=== PATIENT | female | born 1960 | race Caucasian/White ===

== ENCOUNTER 2017-01-01 09:22 | Emergency (ER) | payer OTHER ==
[2017-01-01 09:34] LABS: MEAN CORPUSCULAR HGB CONC 34.5 gm/dl (32.0-36.0)
[2017-01-01 09:45] LABS: GLOM FILT RATE 52 mL/min (>60); POTASSIUM 3.6 mMol/L (3.5-5.1); SODIUM 142 mMol/L (136-145)
[2017-01-01] MEDS ORDERED: HYDROMORPHONE HCL 2 MG/ML SOL IV ONE (09:59)
[2017-01-01] MEDS ORDERED: HYDROMORPHONE HCL 2 MG/ML SOL ONE (10:01)
[2017-01-01 10:19] VITALS: RESP 20
[2017-01-01] MEDS ORDERED: LIDOCAINE 2% W/ EPI MPF 20 ML SOL INFIL ONE (10:23)
[2017-01-01] MEDS ORDERED: LIDOCAINE HCL 2% MPF SOL ONE (10:25)
[2017-01-01] MEDS ORDERED: SODIUM CHLORIDE 0.9% 1000ML 1,000 ML IV ONE (10:47)
[2017-01-01 11:27] VITALS: TEMP 99.1
[2017-01-01 12:00] VITALS: BP 141/80; PULSE 75; O2SAT 91
== END 2017-01-01 12:36 | disposition home or self-care (01) | DRG 563 ==
LOC: ED 09:22
DX: S52.502A Unspecified fracture of the lower end of left radius, initial encounter for closed fracture (principal); S52.612A Displaced fracture of left ulna styloid process, initial encounter for closed fracture; V47.0XXA Car driver injured in collision with fixed or stationary object in nontraffic accident, initial encounter
CPT/HCPCS: 36415; 73110; 80048; 80307; 85027; 96365; 96374; 99284; 99285; G0390; J1170; A6402

== ENCOUNTER 2017-01-04 10:20 | Day surgery (SDC) | payer OTHER ==
[2017-01-04] MEDS ORDERED: BUPIVACAINE HCL INJ ONE (13:41)
[2017-01-04] MEDS ORDERED: KETOROLAC TROMETHAMINE 30 MG/ML SOL IV ONE (14:32)
[2017-01-04 15:06] VITALS: RESP 16
[2017-01-04] MEDS ORDERED: APAP/OXYCODONE 325/5 TAB PO ONE (15:25)
[2017-01-04 15:41] VITALS: BP 139/91; PULSE 80; TEMP 98; O2SAT 95
== END 2017-01-04 16:18 | disposition home or self-care (01) | DRG 563 ==
LOC: SURG 10:20
PROVIDERS: ATTEND Orthopaedic Surgery
DX: S52.532A Colles' fracture of left radius, initial encounter for closed fracture (principal)
CPT/HCPCS: 76000; J0690; J1885; J2001; J2250; J2405; J2765; A6402; J2704

== ENCOUNTER 2017-01-11 11:43 | Outpatient (CLI) | payer OTHER ==
[2017-01-04 15:41] VITALS: O2SAT 95
== END 2017-01-11 11:44 | disposition home or self-care (01) | DRG 561 ==
LOC: CONVCARE 11:43
PROVIDERS: ATTEND Orthopaedic Surgery
DX: S52.532D Colles' fracture of left radius, subsequent encounter for closed fracture with routine healing (principal)
CPT/HCPCS: 73110

== ENCOUNTER 2017-01-15 18:38 | Emergency (ER) | payer OTHER ==
[2017-01-15 19:29] VITALS: TEMP 98.4
[2017-01-15 19:49] VITALS: BP 137/67; PULSE 70; RESP 16; O2SAT 96
== END 2017-01-15 19:20 | disposition home or self-care (01) ==
LOC: ED 18:38
DX: S62.102D Fracture of unspecified carpal bone, left wrist, subsequent encounter for fracture with routine healing (principal)
CPT/HCPCS: 99282

== ENCOUNTER 2017-02-01 10:01 | Outpatient (CLI) | payer OTHER ==
[2017-01-15 19:49] VITALS: O2SAT 96
== END 2017-02-01 10:02 | disposition home or self-care (01) | DRG 561 ==
LOC: CONVCARE 10:01
PROVIDERS: ATTEND Orthopaedic Surgery
DX: S52.532D Colles' fracture of left radius, subsequent encounter for closed fracture with routine healing (principal); M25.532 Pain in left wrist
CPT/HCPCS: 73110

== ENCOUNTER 2017-03-01 10:34 | Outpatient (CLI) | payer OTHER ==
[2017-01-15 19:49] VITALS: O2SAT 96
== END 2017-03-01 10:35 | disposition home or self-care (01) | DRG 561 ==
LOC: CONVCARE 10:34
PROVIDERS: ATTEND Orthopaedic Surgery
DX: S62.102D Fracture of unspecified carpal bone, left wrist, subsequent encounter for fracture with routine healing (principal)
CPT/HCPCS: 73110

== ENCOUNTER 2017-03-29 11:22 | Outpatient (CLI) | payer OTHER ==
[2017-01-15 19:49] VITALS: O2SAT 96
== END 2017-03-29 11:23 | disposition home or self-care (01) | DRG 561 ==
LOC: CONVCARE 11:22
PROVIDERS: ATTEND Orthopaedic Surgery
DX: S52.532D Colles' fracture of left radius, subsequent encounter for closed fracture with routine healing (principal)
CPT/HCPCS: 73110